=== PATIENT | male | born 1990 | race Caucasian/White ===

== ENCOUNTER 2018-08-29 17:59 | Emergency (ER) | payer SELFPAY ==
--- NOTE | 2018-08-29 18:15 | NUR ---
NO ANSWER IN ER LOBBY
--- NOTE | 2018-08-29 18:35 | NUR ---
NO ANSWER IN ER LOBBY
== END 2018-08-29 18:15 | disposition left against medical advice (07) ==
LOC: MED 17:59
DX: H57.10 Ocular pain, unspecified eye (principal); Z53.21 Procedure and treatment not carried out due to patient leaving prior to being seen by health care provider

== ENCOUNTER 2024-02-28 14:03 | Emergency (ER) | payer SELFPAY ==
[~2024-02-28] VITALS: Ht 180.3 cm; Wt 147.9 kg
[2024-02-28 14:31] VITALS: BP 136/93; PULSE 83; RESP 18; TEMP 97.7; O2SAT 96
== END 2024-02-28 17:45 | disposition home or self-care (01) ==
LOC: MED 14:03
DX: H53.8 Other visual disturbances (principal); R22.0 Localized swelling, mass and lump, head; F12.90 Cannabis use, unspecified, uncomplicated
CPT/HCPCS: 99284

== ENCOUNTER 2024-03-12 14:18 | Emergency (ER) | payer MEDICAID ==
[~2024-03-12] VITALS: Ht 182.9 cm; Wt 145.1 kg
[2024-03-12 14:30] VITALS: BP 197/89; PULSE 102; RESP 20; TEMP 97.2; O2SAT 97
[2024-03-12 15:45] VITALS: BP 129/83; PULSE 98; RESP 20; O2SAT 97
== END 2024-03-12 15:45 | disposition home or self-care (01) ==
LOC: MED 14:18
DX: R51.9 Headache, unspecified (principal); R20.2 Paresthesia of skin; F12.90 Cannabis use, unspecified, uncomplicated; R03.0 Elevated blood-pressure reading, without diagnosis of hypertension
CPT/HCPCS: 82948; 99282